=== PATIENT | male | born 1965 | race Caucasian/White ===

== ENCOUNTER → 2022-10-26 14:51 | Outpatient (BNVA) | payer OTHER, SELFPAY | PROVIDERS: PCP Internal Medicine; Visit Provider Psychiatry & Neurology Psychiatry | DX: F33.41 Major depressive disorder, recurrent, in partial remission (principal) ==

== ENCOUNTER → 2022-12-04 10:44 | Outpatient (BNVA) | payer OTHER, SELFPAY | PROVIDERS: PCP Internal Medicine; Visit Provider Psychiatry & Neurology Psychiatry | DX: Z13.89 Encounter for screening for other disorder (principal) ==

== ENCOUNTER 2023-05-21 12:14 | Outpatient (AMB) | payer OTHER, SELFPAY ==
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
== END 2023-05-21 12:44 | disposition home or self-care (01) ==
LOC: HO.HOP 12:14
PROVIDERS: PCP Internal Medicine; Visit Provider Psychiatry & Neurology Psychiatry
DX: E11.9 Type 2 diabetes mellitus without complications (principal); F41.1 Generalized anxiety disorder
CPT/HCPCS: 90833; 99213

== ENCOUNTER → 2023-05-21 12:14 | Outpatient (BNVA) | payer OTHER, SELFPAY | PROVIDERS: PCP Internal Medicine; Visit Provider Psychiatry & Neurology Psychiatry ==

== ENCOUNTER 2023-09-20 11:56 | Outpatient (AMB) | payer OTHER, SELFPAY ==
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
== END 2023-09-20 16:51 | disposition home or self-care (01) ==
LOC: HO.HOP 11:57
PROVIDERS: PCP Internal Medicine; Visit Provider Psychiatry & Neurology Psychiatry
DX: F41.1 Generalized anxiety disorder (principal); F33.41 Major depressive disorder, recurrent, in partial remission
CPT/HCPCS: 90833; 99213

== ENCOUNTER → 2023-09-20 11:56 | Outpatient (BNVA) | payer OTHER, SELFPAY | PROVIDERS: PCP Internal Medicine; Visit Provider Psychiatry & Neurology Psychiatry ==

== ENCOUNTER 2023-12-27 11:17 | Outpatient (AMB) | payer OTHER, SELFPAY ==
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
== END 2023-12-27 12:26 | disposition home or self-care (01) ==
LOC: HO.HOP 11:17
PROVIDERS: PCP Internal Medicine; Visit Provider Psychiatry & Neurology Psychiatry
DX: F33.9 Major depressive disorder, recurrent, unspecified (principal); F41.1 Generalized anxiety disorder
CPT/HCPCS: 90833; 99213

== ENCOUNTER → 2023-12-27 11:17 | Outpatient (BNVA) | payer OTHER, SELFPAY | PROVIDERS: PCP Internal Medicine; Visit Provider Psychiatry & Neurology Psychiatry ==

== ENCOUNTER 2024-01-24 11:21 | Outpatient (AMB) | payer OTHER, SELFPAY ==
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
== END 2024-01-24 13:57 | disposition home or self-care (01) ==
LOC: HO.HOP 11:21
PROVIDERS: PCP Internal Medicine; Visit Provider Psychiatry & Neurology Psychiatry
DX: F33.9 Major depressive disorder, recurrent, unspecified (principal); F41.1 Generalized anxiety disorder
CPT/HCPCS: 90833; 99213

== ENCOUNTER → 2024-01-24 11:21 | Outpatient (BNVA) | payer OTHER, SELFPAY | PROVIDERS: PCP Internal Medicine; Visit Provider Psychiatry & Neurology Psychiatry ==

== ENCOUNTER 2024-04-13 11:39 | Outpatient (AMB) | payer OTHER, SELFPAY ==
--- OUTSIDE RECORDS SUMMARY | 2024-04-13 11:41 | XMS_ITS | Continuity of Care Document ---
Author Organization [facility] Address [address] [place] [id number]- Care Team Providers Care Grain Elevator Worker Name Role Phone Samira FIGUEROA, Terrence Stein Primary Care Physician Encounter [facility] Date(s): 08/28/20 - 09/27/20 [facility] [address] [place] [id number] Allergies, Adverse Reactions, Alerts Substance Reaction Severity Status morphine Active Immunizations Given and Recorded Vaccine Date Status Refusal Reason Zoster Vaccine Live 09/10/20 Recorded Influenza Virus Vaccine (oldterm) 07/18/20 Recorde d Influenza Virus Vaccine (oldterm) 09/18/16 Recorde d Influenza Virus Vaccine (oldterm) 11/05/14 Recorde d Influenza Virus Vaccine (oldterm) 09/13/13 Recorde d zoster vaccine, inactivated 06/27/20 Recorded tetanus/diphtheria/pertussis, acel(Tdap) 01/27/19 Given pneumococcal 23-valent vaccine 11/05/14 Recorded tetanus-diphtheria toxoids (Td) 06/20/08 Recorded Medications Metamucil Unflavored Smooth Texture 3.4 g/5.4 g oral powder for reconstitution = 1.7 Gm, By Mouth, 2 times a day, # 450 Gm, 1 Refills, Maintenance, 08/29/20 14:13:00 EST, REC Powder, [id number], Partial fill upon patient request, 170.18, cm, 08/29/20 13:44:00 EST, Height Start Date: 08/29/20 Status: Ordered Problem List Condition Effective Dates Status Health Status Inform ant Carpal tunnel syndrome(Confirmed) Active Deviated septum(Confirmed) Active Uncontrolled diabetes mellitus(Confirmed) Active Skin lesion of right leg(Confirmed) Active Dyslipidemia(Confirmed) Active Hematoma(Confirmed) Active Calculus of kidney, on allop urinol prophylaxis(Confirmed) Active Microalbuminuria due to type 2 diabetes mellitus(Confirmed) Active Background diabetic retinopathy(Confirmed) Active Obesity(Confirmed) Active DEVAUGHN - Obstructive sleep apnea(Confirmed) Active Plantar fasciitis(Confirmed) Active PTSD (post-traumatic stress disorder)(Confirmed) Active Sleep apnea(Confirmed) Active Type II diabetes mellitus wi th renal manifestations not at goal(Confirmed) Active Umbilical hernia(Confirmed) Active Social History Social History Type Response Smoking Status Never (less than 100 in lifetime) entered on: 01/27/19 Sex
--- OUTSIDE RECORDS SUMMARY | 2024-04-13 11:41 | XMS_ITS | Continuity of Care Document ---
Author Organization [facility] Address [address] [place] [id number]- Care Team Providers Care Pearl Technician Name Role Phone Samira FIGUEROA, Terrence Stein Primary Care Physician [place] [facility] [place](s): 01/10/21 - 02/09/21 [facility] [address] [place] [id number] Attending Physician: Carlos Harris Admitting Physician: Carlos Harris Referring Physician: AdmCarlos goel Allergies, Adverse Reactions, Alerts Substance Reaction Severity Status morphine Active Immunizations Given and Recorded Vaccine Date Status Refusal Reason SARS-CoV-2 (COVID-19) mRNA BNT-162b2 vac 01/21/21 Recorded SARS-CoV-2 (COVID-19) mRNA BNT-162b2 vac 12/31/20 Recorded SARS-CoV-2 (COVID-19) mRNA BNT-162b2 vac 12/31/20 Recorded Zoster Vaccine Live 09/10/20 Recorded Influenza Virus [...] Maintenance, 08/29/20 14:13:00 EST, REC Powder, [id number], Partial fill upon patient request, 170.18, cm, [...]
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
== END 2024-04-13 13:05 | disposition home or self-care (01) ==
LOC: HO.HOP 11:39
PROVIDERS: PCP Internal Medicine; Visit Provider Psychiatry & Neurology Psychiatry
DX: F41.1 Generalized anxiety disorder (principal); F33.41 Major depressive disorder, recurrent, in partial remission
CPT/HCPCS: 90833; 99213

== ENCOUNTER → 2024-04-13 11:39 | Outpatient (BNVA) | payer OTHER, SELFPAY | PROVIDERS: PCP Internal Medicine; Visit Provider Psychiatry & Neurology Psychiatry ==

== ENCOUNTER 2024-07-06 10:08 | Outpatient (AMB) | payer OTHER, SELFPAY ==
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
== END 2024-07-06 11:05 | disposition home or self-care (01) ==
LOC: HO.HOP 10:08
PROVIDERS: PCP Internal Medicine; Visit Provider Psychiatry & Neurology Psychiatry
DX: F41.1 Generalized anxiety disorder (principal); F33.41 Major depressive disorder, recurrent, in partial remission
CPT/HCPCS: 90833; 99213

== ENCOUNTER → 2024-07-06 10:08 | Outpatient (BNVA) | payer OTHER, SELFPAY | PROVIDERS: PCP Internal Medicine; Visit Provider Psychiatry & Neurology Psychiatry ==

== ENCOUNTER 2024-09-25 10:54 | Outpatient (AMB) | payer OTHER, SELFPAY ==
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
[2024-09-25 11:40] VITALS: BP 154/72; PULSE 117
== END 2024-09-25 10:56 | disposition home or self-care (01) ==
LOC: HO.HOP 10:54
PROVIDERS: PCP Internal Medicine; Visit Provider Psychiatry & Neurology Psychiatry
DX: F33.41 Major depressive disorder, recurrent, in partial remission (principal); F41.1 Generalized anxiety disorder; F90.9 Attention-deficit hyperactivity disorder, unspecified type
CPT/HCPCS: 90833; 99213

== ENCOUNTER 2024-10-25 10:16 | Outpatient (AMB) | payer OTHER, SELFPAY ==
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
== END 2024-10-25 11:14 | disposition home or self-care (01) ==
LOC: HO.HOP 10:16
PROVIDERS: PCP Internal Medicine; Visit Provider Psychiatry & Neurology Psychiatry
DX: F33.41 Major depressive disorder, recurrent, in partial remission (principal); F41.1 Generalized anxiety disorder; F90.9 Attention-deficit hyperactivity disorder, unspecified type
CPT/HCPCS: 90833; 99213

== ENCOUNTER 2024-10-25 10:16 | Outpatient (REF) | payer OTHER, SELFPAY ==
[2024-10-25 11:39] LABS: MANUAL DIFF FLAG NO
--- NOTE | 2024-10-25 11:45 | ECG_ITS ---
Test Reason : ADHD Blood Pressure : */* mmHG Vent. Rate : 68 BPM Atrial Rate : 68 BPM P-R Int : 170 ms QRS Dur : 150 ms QT Int : 424 ms P-R-T Axes : 32 -57 -2 degrees QTcB Int : 450 ms Normal sinus rhythm Right bundle branch block Left anterior fascicular block Bifascicular block Abnormal ECG No previous ECGs available Referred By: Brandon Patel Electronically Signed By: ASHLEY ENCARNACION
[2024-10-25 12:41] LABS: Basophils Percent Auto 0.4 % (0-2); Eosinophils Absolute Auto 0.3 X10*3/uL (0.0-0.4); Eosinophils Percent Auto 3.6 % (0-4); Hematocrit 48.4 % (42.0-52.0); Hemoglobin 16.9 g/dl (14.0-18.0); Imm Gran Abs Auto 0.03 X10*3/uL (0.00-0.03); Imm Gran Pct Auto 0.4 % (0.0-0.4); Lymphocytes Absolute Auto 1.6 X10*3/uL (1.2-4.9); Lymphocytes Percent Auto 22.7 % (20-40); Mean Corpuscular HGB Conc 34.9 g/dl (31.0-36.0); Mean Corpuscular Hemoglobin 31.1 pg (27.0-33.0); Mean Corpuscular Volume 89.1 fL (80.0-98.0); Mean Platelet Volume 10.1 fL (9.4-12.4); Monocytes Absolute Auto 0.7 X10*3/uL (0.1-1.2); Monocytes Percent Auto 9.4 % (2-11); Neutrophils Absolute Auto 4.4 x10*3/uL (2.0-8.3); Neutrophils Percent Auto 63.5 % (45-73); Platelet Count 282 X10*3/uL (160-400); Red Blood Count 5.43 X10*6/uL (4.60-5.80); Red Cell Distribution Width 12.8 % (11.0-16.0)
[2024-10-25 13:13] LABS: Alanine Aminotransferase 42 U/L (0-40); Albumin Level 4.8 g/dL (3.5-5.0); Alkaline Phosphatase 83 U/L (39-117); Anion Gap 16 (12-20); Aspartate Amino Transferase 17 U/L (5-37); Bilirubin Total 0.4 mg/dL (0.0-1.0); Blood Urea Nitrogen 14 mg/dL (9-16); Calcium 9.9 mg/dL (8.4-10.2); Carbon Dioxide 30 mmol/L (22-29); Chloride 102 mmol/L (96-108); Estimated Glomerular Filt Rate > 60; Glucose Random 239 mg/dL (60-115); Potassium 5.5 mmol/L (3.3-5.1); Sodium 142 mmol/L (135-145); Total Protein 7.8 g/dL (6.5-8.0)
[2024-10-25 13:29] LABS: TSH reflex Free T4 1.78 uIU/mL (0.32-4.0)
[2024-10-25 13:42] LABS: Folate 15.3 ng/mL (> or = 4.0); Vitamin B12 936 pg/mL (200-900)
== END 2024-10-25 10:17 | disposition home or self-care (01) ==
LOC: HO.LAB 10:16
PROVIDERS: PCP Internal Medicine; Visit Provider Psychiatry & Neurology Psychiatry
DX: F33.41 Major depressive disorder, recurrent, in partial remission (principal); F41.1 Generalized anxiety disorder; F90.9 Attention-deficit hyperactivity disorder, unspecified type; R53.83 Other fatigue; I10 Essential (primary) hypertension
CPT/HCPCS: 36415; 80053; 82607; 82746; 84443; 85025; 93005

== ENCOUNTER → 2024-10-25 11:45 | Outpatient (BNV) | payer OTHER, SELFPAY | PROVIDERS: PCP Internal Medicine; Visit Provider Internal Medicine | DX: I45.2 Bifascicular block (principal); R94.31 Abnormal electrocardiogram [ECG] [EKG] | CPT/HCPCS: 93010 ==

== ENCOUNTER 2024-12-13 10:24 | Outpatient (AMB) | payer OTHER, SELFPAY ==
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
--- OUTSIDE RECORDS SUMMARY | 2024-12-13 12:43 | XMS_ITS | Data Portability ---
Author Organization [place] [facility], [facility] Address [address] [place] [address] Care Team Providers Care Geospatial Technician Name Role Phone GIOVANNA CARVER Primary Care Provider Assessment Encounter Date Assessment Date Assessment LastModified by Organization Details LastModified Time 04/03/2024 04/03/2024 Assessment: Righ t elbow lateral epicondylitis, initial diagnosis Plan: We discussed the pathophysiology of this problem and treatment options. He has elected to try a cortisone injection. He is also provided with a forearm strap. The patient is ambulatory, but has weakness and/or instability of their extremity which requires stabilization from this semi-rigid/rigid orthosis to improve their function. Verbal and written instructions for their use and application of this item were given. patient was instructed that should the brace result in increased pain, decreased sensation, increased swelling or an overall worsening of their medical condition, to please contact our office immediately. meena Not available 04/03/2024 08:55:20 Plan of Treatment Reminders Order Date Submit Date Provider Last Modified By Organization Details Last Modified Time Details Appointments None record ed. Lab None record ed. Referral None record ed. Procedures None record ed. Surgeries None record ed. Imaging XR, elbow, 3 or more view - 3 views right elbow pt in room 115 2023 024 meena [facility], [address], [facility] [address], [place], [address], 08:56:41 Medication Orders None record ed. Patient TargetsNo targets recorded. Patient InstructionsNo instructions recorded. Reason for Referral None Reported. Results Created Date Observation Date Name Description Value Unit Range Abnormal Flag Note LastModifiedBy Organization Detail LastModifiedTime 04/03/20 24 04/03/2024 XR, elbow , 3 or more view [email or web address] ?Encry pted=s hAaTro YD8dLq bEUv6g %2BXZw aYqtaq 0bqfl% 2Fg9IQ a4ajBk vP9nXo QUaueC m3YtLR FvZlgJ JJ8mAn HZtai3 2s5348 AC0Kub 3WNWaX eUC8mr 84%3D INTERFACE [facility] [address], [place], [address], 04/03/2024 08:41:18 04/03/20 24 04/03/2024 XR, elbow , 3 or more view [email or web address] ?Encry pted=s hAaTro YD8dLq bEUv6g %2BXZw aYqtaq 0bqfl% 2Fg9IQ a4ajBk vP9nXo QUaueC m3YtLR FvZlgJ JJ8mAn HZtai 8t3612 AC0Kub 3WNWaX eUC8mr 84%3D INTERFACE [facility] [address], [place], [address], 04/03/2024 08:41:20 Result Notes None recorded. Problems Name Problem SNOMED Code Status Onset Date Resolution Date Notes Provider Name and Address Organization Details Recorded Time No complaint s [id number] Active Status: 'I'; Not Available [facility] 4 09:14:58 Carpal tunnel syndrome of right wrist [id number] 108 Active 2016 Problem Code: G56.01; Problem Code Type: ICD-10; Status: 'A'; Not Available [facility] 4 11:42:05 Problem Notes None recorded. Procedures Surgical History Date Name Laterality Status Provider Name and Address Organization Details Recorded Time 04/03/20 24 Lateral Epicondylitis Kenalog 1cc Injection, L/R completed Jade Nevarez MD [address], [place], [address], [place] - [facility] 04/03/2024 08:54:45 Imaging Results Imaging Date Name Status LastModified by Organiz ation Details LastModified Time 04/03/2024 XR, elbow, 3 or more view completed INTERFACE [facility] [address], [place], [address], 04/03/2024 08:41:18 04/03/2024 XR, elbow, 3 or more view completed INTERFACE [facility] [address], [place], [address], 04/03/2024 08:41:20 Procedure Notes None recorded. Medical Equipment None Reported. Allergies No known drug allergies Medications Name Sig Start Date Stop Date Status Note LastModified by Organization Details LastModified Time venlafaxine ER 37.5 mg capsule,exte nded release 24 hr TAKE 3 CAPSULES BY MOUTH EVERY NIGHT AT BEDTIME active Not Available Not Available No t Available venlafaxine ER 75 mg capsule,exte nded release 24 hr TAKE 1 CAPSULE BY MOUTH DAILY active Not Available Not Available Not Available glipizide 10 mg tablet TAKE 1 TABLET BY MOUTH TWICE A DAY active Not Available Not Available No t Available simvastatin 10 mg tablet TAKE 1 TABLET BY MOUTH EVERYDAY AT BEDTIME active Not Available Not Available No t Available venlafaxine ER 150 mg capsule,exte nded release 24 hr TAKE 1 CAPSULE BY MOUTH DAILY FOR 90 DAYS active Not Available Not Available Not Available lorazepam 0.5 mg tablet TAKE 1 TABLET BY MOUTH TWICE A DAY NEEDED FOR ANXIETY active Not Available Not Available No t Available propranolol ER 80 mg capsule,24 hr,extended release TAKE 1 CAPSULE BY MOUTH EVERY DAY active Not Available Not Available No t Available allopurinol 300 mg tablet TAKE 1 TABLET BY MOUTH EVERY DAY active Not Available Not Available No t Available lisinopril 5 mg tablet TAKE 1 TABLET BY MOUTH EVERY DAY active Not Available Not Available No t Available mirtazapine 15 mg tablet TAKE 1/2 TO 1 TABLET ORALLY BEDTIME FOR 30 DAYS active Not Available Not Available No t Available Victoza 2-Erick 0.6 mg/0.1 mL (18 mg/3 mL) subcutaneous pen injector ADMINISTER 1.8 MG UNDER THE SKIN DAILY active Not Available Not Available N ot Available Xigduo XR 2.5 mg-1,000 mg tablet,exten ded release TAKE 2 TABLETS BY MOUTH EVERY MORNING WITH FOOD active Not Available Not Available No t Available Ozempic 1 mg/dose (4 mg/3 mL) subcutaneous pen injector INJECT 1MG UNDER THE SKIN ONE DAY A WEEK active Not Available Not Available N ot Available Ozempic 2 mg/dose (8 mg/3 mL) subcutaneous pen injector active Not Available Not Available Not Available Vitals Date Recorded Body height Body mass index (BMI) Body weight Provider Name and Address Organization Details Last Updated DateTime 04/03/2024 170.18 cm 26.9 kg/m2 11912.89 g SLADE COTA [place] - [facility] 04/03/2024 08:29:58 Social History None recorded. Functional Status None recorded. Mental Status None recorded. Family History Nothing Reported. Medical History No medical history recorded. Past Encounters Encounter ID Performer Location Encounter Start Date Encounter Closed Date Diagnosis/Indication Diagnosis SNOMED-CT Code Diagnosis ICD10 Code Diagnosis Note [id number] MD [facility] [address] [place] [address] 04/03/2024 08:17:34 05/04/2024 07:49:15 Lateral epicondylitis [id number] M77.11 Health Concerns Section Related Observation LastModified by Organization Detai ls LastModified Time None Recorded Concern Status LastModified by Organization Details LastModified Time None Recorded Advance Directives Directive None Recorded Payers Encounter Date Sequence Insurance Name Policy Number Policy Keller Covered Member ID Keller Member ID Guarantor Name 04/03/[address] [place] [address] [id number] Saul Gomez [id number] Saul Gomez Notes Date Note Type Note Provider Name and Address Organization Details Recorded Time 04/03/2024 text/html 59 yo right hand dom male with R elbow pain, has had on/off pain for some time (over a year) with no definitive injury. pain with activity, no pain at rest, radiates down forearm. Rx to this point: topical, NSAIDS, no brace, no PT. Jade Nevarez MD [address], [place], [address], [place] [facility] 04/03/2024 08:56:37
== END 2024-12-13 11:12 | disposition home or self-care (01) ==
LOC: HO.HOP 10:24
PROVIDERS: PCP Internal Medicine; Visit Provider Psychiatry & Neurology Psychiatry
DX: F33.41 Major depressive disorder, recurrent, in partial remission (principal); F41.1 Generalized anxiety disorder; F90.9 Attention-deficit hyperactivity disorder, unspecified type
CPT/HCPCS: 99214

== ENCOUNTER → 2024-12-13 10:24 | Outpatient (BNVA) | payer OTHER, SELFPAY | PROVIDERS: PCP Internal Medicine; Visit Provider Psychiatry & Neurology Psychiatry ==

== ENCOUNTER 2025-03-14 10:25 | Outpatient (AMB) | payer OTHER, SELFPAY ==
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
--- OUTSIDE RECORDS SUMMARY | 2025-03-14 11:23 | XMS_ITS | Encounter Summary ---
Author Organization [facility] Address [address] [place] [address] Care Team Providers Care Tester [employer]icon[employer] Packages Name Role Phone Piotr Cortes MD Primary Care Provider Unavail able Bernardo Newberry MD Primary Care Provider [phone] [facility] Primary Care Provider Unavailabl e Reason for Visit * Reason Comments E-prescribe Rx Request Encounter Details Date Type Department Care Team Description 08/18/2013 Refill Adult Medicine B - [place] [address] [place] [address] Piotr Cortes MD E-prescribe Rx Request Social History Tobacco Use Types Packs/Day Years Used Date Smoking Tobacco: Never Alcohol Use Standard Drinks/Week Comments Not Asked 0 (1 standard drink = 0.6 oz pur e alcohol) Sex Assigned at Date Recorded Not on file documented as of this encounter Miscellaneous Notes * Telephone Encounter - Piotr Cortes MD - 08/21/2013 9:13 PM EST Comfort please look at 08/18/13 documentation-I do not know how that phrase got in there or how to getit out. It is an old 'smart phrase' * Telephone Encounter - Cecilia West M.A. - 08/20/2013 8:39 AM EST Please clarify your documentation below * Telephone Encounter - Piotr Cortes MD - 08/18/2013 5:13 PM EDT Entered in error * Telephone Encounter - Cecilia West M.A. - 08/18/2013 3:30 PM EDT Tamar 7.22.13 Component Value Date NA 137 12/19/2012 K 4.6 12/19/2012 CO2 30.0 12/19/2012 CL 98 12/19/2012 BUN 13 12/19/2012 CREAT 0.8 12/19/2012 GLU 305 12/19/2012 CA 9.7 12/19/2012 GFR > 60 12/19/2012 Component Value Date CHOL 163 12/19/2012 LDL 83 12/19/2012 HDL 44 12/19/2012 TRIG 181 12/19/2012 SGOT 15 12/19/2012 SGPT 35 12/19/2012 * Telephone Encounter - Susan Renee - 08/18/2013 3:08 PM EDT Patient would like script to be: E-PRESCRIBED/FAXED TO PHARMACY WHEN WAS THE PATIENT'S LAST APPOINTMENT IN ADULT MEDICINE? 05.08.13 WHEN WAS THE LAST TIME THE PATIENT SAW THEIR PCP? 3.13 Does patient have an upcoming appointment? no (THE MEDICATION REQUESTED IS ON THE MED LIST ABOVE) All of the medications requested were on the CURRENT MEDS list Did you check the Pharmacy information above?: YES Patient wants: 90 -day supply Is this a mail order prescription request ? NO Patients current insurance carrier is: Payor: [employer] Plan: POS $20 [id number] Product Type: [id number] documented in this encounter Plan of Treatment Not on file documented as of this encounter Visit Diagnoses Not on filedocumented in this encounter Care Teams Tester [employer]iconductor Packages Relationship Specialty Start Date End Date Piotr Cortes MD PCP - General 08/28/02 09/21/17 Bernardo Newberry MD [address] [place] [address] PCP - General Internal Medicine 09/22/17 06/01/[address] [address] PCP - General Internal Medicine 06/02/21 documented as of this encounter
== END 2025-03-14 11:26 | disposition home or self-care (01) ==
LOC: HO.HOP 10:25
PROVIDERS: PCP Internal Medicine; Visit Provider Psychiatry & Neurology Psychiatry
DX: F41.1 Generalized anxiety disorder (principal); F90.9 Attention-deficit hyperactivity disorder, unspecified type
CPT/HCPCS: 90833; 99213

== ENCOUNTER 2025-06-13 11:35 | Outpatient (AMB) | payer OTHER, SELFPAY ==
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
--- OUTSIDE RECORDS SUMMARY | 2025-06-13 12:34 | XMS_ITS | Encounter Summary ---
Author Organization [facility] Address [address] [place] [address] Care Team Providers Care Hander In Name Role Phone Piotr Cortes MD Primary Care Provider Unavail able Bernardo Newberry MD Primary Care Provider [phone] [facility] Primary Care Provider Unavailabl e Encounter Details Date Type Department Care Team Description 02/25/2005 Orders Only Adult Medicine - [place] [address] [place] [address] Piotr Cortes MD ROUTINE GENERAL MEDICAL EXAMINATION AT A HEALTH CARE FACILITY (Primary Dx) Social History Tobacco Use Types Packs/Day Years Used Date Smoking Tobacco: Never Assessed Sex Assigned at Date Recorded Not on file documented as of this encounter Plan of Treatment Scheduled Orders Name Type Priority Associated Diagnoses Orde r Schedule VENIPUNCTURE Lab Routine Routine General Medical Examination At A Health Care Facility Ordered: 02/25/2005 documented as of this encounter Procedures Procedure Name Priority Date/Time Associated Diagnosis Comments PROSTATE SPEC. AG, SCREEN Routine 02/25/2005 3:15 PM EDT Routine General Medical Examination At A Health Care Facility TSH Routine 02/25/2005 3:15 PM EDT Routine General Medical Examination At A Health Care Facility CHG URNLS DIP STICK/TABLET REAGENT AUTO MICROSCOPY Routine 02/25/2005 3:15 PM EDT Routine General Medical Examination At A Health Care Facility CHG BLOOD COUNT HEMATOCRIT Routine 02/25/2005 3:15 PM EDT Routine General Medical Examination At A Health Care Facility CHG CHOLESTEROL SERUM/WHOLE BLOOD TOTAL Routine 02/25/2005 3:15 PM EDT Routine General Medical Examination At A Health Care Facility CHG COMPREHENSIVE METABOLIC PANEL Routine 02/25/2005 3:15 PM EDT Routine General Medical Examination At A [facility] Care Facility documented in this encounter Results * URINALYSIS, COMPLETE (02/25/2005 3:15 PM EDT) GLUCOSE, URINE (UA) NEGATIVE NEGATIVE mg/dL [facility] BILIRUBIN URINE NEGATIVE NEGATIVE [facility] KETONE, URINE NEGATIVE NEGATIVE mg/dL [facility] SPECIFIC GRAVITY, URINE 1.023 1.003 - 1.030 [facility] BLOOD, URINE NEGATIVE NEGATIVE [facility] PH, URINE 7.5 5.0 - 8.0 [facility] PROTEIN, URINE NEGATIVE <= TRACE mg/dl [facility] UROBILINOGEN, URINE 0.2 0.2 - 1.0 E.U./dL [facility] NITRITE,URINE NEGATIVE NEGATIVE [facility] LEUKOCYTE ESTERASE, URINE NEGATIVE NEGATIVE [facility] RBC-Urine 0 0 - 4 /HPF [facility] WBC-Urine 1 0 - 4 /hpf [facility] BACTERIA, URINE NEGATIVE [facility] 02/25/2005 3:15 PM EDT 02/25/2005 3:17 PM EDT Piotr Cortes MD LAB Performing Organization Address [facility]/ZIP Co de Phone Number [facility] * TSH (02/25/2005 3:15 PM EDT) TSH 1.90 0.40 - 4.00 uIU/ml [facility] 02/25/2005 3:15 PM EDT 02/25/2005 3:17 PM EDT Piotr Cortes MD LAB [facility] * PROSTATE SPEC. AG, SCREEN (02/25/2005 3:15 PM EDT) PROSTATIC SPECIFIC ANTIGEN SCR 0.7 0.0 - 4.0 ng/mL [facility] 02/25/2005 3:15 PM EDT 02/25/2005 3:17 PM EDT Piotr Cortes MD LAB [facility] * CHOLESTEROL (02/25/2005 3:15 PM EDT) Cholesterol 176 0 - 200 mg/dL [facility] 02/25/2005 3:15 PM EDT 02/25/2005 3:17 PM EDT Piotr Cortes MD LAB Performing Organization Address [facility]/ZIP Co de Phone Number [facility] * HEMATOCRIT BLOOD COUNT (02/25/2005 3:15 PM EDT) Hematocrit 46.7 40 - 51 % [facility] 02/25/2005 3:15 PM EDT 02/25/2005 3:17 PM EDT Piotr Cortes MD LAB Performing Organization Address [facility]/ZIP Co de Phone Number [facility] * (ABNORMAL) COMPREHENSIVE METABOLIC PANEL (02/25/2005 3:15 PM EDT) GLUCOSE 97 70 - 110 mg/dL [facility] Blood Urea Nitrogen 12 5 - 25 mg/dL [facility] creatinine 0.6(L) 0.7 - 1.5 mg/dL [facility] BUN/CREATININE RATIO 20.0 6.0 - 20.0 G/dL [facility] Sodium 141 133 - 145 mEq/L [facility] Potassium 4.7 3.5 - 5.2 mEq/L [facility] Chloride 107 96 - 108 mEq/L [facility] CARBON DIOXIDE (CO2) 27.2 21.0 - 32.0 mEq/L [facility] CALCIUM 9.0 8.5 - 10.5 mg/dL [facility] TOTAL PROTEIN (TP) 7.4 6.0 - 8.0 G/dL [facility] Albumin 4.8 3.2 - 5.6 G/dL [facility] GLOBULIN 2.6 1.9 - 4.4 G/dL [facility] ALBUMIN/GLOBULI N RATIO 1.8 1.1 - 2.3 [facility] BILIRUBIN TOTAL 0.4 0.0 - 1.4 mg/dL [facility] AST (SGOT) 22 10 - 42 U/L [facility] ALT (SGPT) 66(H) 10 - 60 U/L [facility] Alk Phos 79 42 - 121 U/L [facility] 02/25/2005 3:15 PM EDT 02/25/2005 3:17 PM EDT Piotr Cortes MD LAB [facility] documented in this encounter Visit Diagnoses Diagnosis Routine general medical examination at a health care facility- Primary documented in this encounter Care Teams Hander In Relationship Specialty Start Date End Date Piotr Cortes MD PCP - General 08/28/02 09/21/17 Bernardo Newberry MD [address] [place] [address] PCP - General Internal Medicine 09/22/17 06/01/21 [facility], [address] [address] PCP - General Internal Medicine 06/02/21 documented as of this encounter
--- OUTSIDE RECORDS SUMMARY | 2025-06-13 12:34 | XMS_ITS | Encounter Summary ---
[facility] Organization [facility] Address [address] [place] [address] Care Team Providers Care Hydraulic Plumber Name Role Phone Community, Pcp Primary Care Provider Unavailabl e Encounter Details Date Type Department Care Team Description 11/17/2021 [employer] Report Medical Records [address] [place] [address] Jade Nevarez MD Social History Tobacco Use Types Packs/Day Years Used Date Smoking Tobacco: Never Smokeless Tobacco: Never Alcohol Use Standard Drinks/Week Comments Not Asked 0 (1 standard drink = 0.6 oz pur e alcohol) Sex Assigned at Date Recorded Not on file documented as of this encounter Plan of Treatment Not on file documented as of this encounter Visit Diagnoses Not on filedocumented in this encounter Care Teams Hydraulic Plumber Relationship Specialty Start Date End Date Community, Pcp PCP - General Internal Medicine 06/02/21 documented as of this encounter
--- OUTSIDE RECORDS SUMMARY | 2025-06-13 12:34 | XMS_ITS | Encounter Summary ---
Author Organization [facility] Address [address] [place] [address] Care Team Providers Care Energy Efficiency Finance Manager Name Role Phone Bernardo Newberry MD Primary Care Provider [phone] [phone] [facility], Pcp Primary Care Provider Unavailabl e Reason for Visit * Reason Onset Date Comments Faxed Refill 05/09/2018 Encounter Details Date Type Department Care Team Description 05/09/2018 Refill Adult Medicine [address] [address] Bernardo Newberry MD [address] [place] [address] Faxed Refill Social History Tobacco Use Types Packs/Day Years Used Date Smoking Tobacco: Never Smokeless Tobacco: Never Alcohol Use Standard Drinks/Week Comments Not Asked 0 (1 standard drink = 0.6 oz pur e alcohol) Sex Assigned at Date Recorded Not on file documented as of this encounter Miscellaneous Notes * Telephone Encounter - Bri George - 05/09/2018 11:54 AM EDT Last office visit: 12.24.17 Lab Results Component Value Date NA 138 07/19/2017 K 4.8 07/19/2017 CO2 24.5 07/19/2017 CL 97 07/19/2017 BUN 16 07/19/2017 CREAT 0.6 07/19/2017 GLU 213 07/19/2017 CA 9.9 07/19/2017 GFR > 60 07/19/2017 * Telephone Encounter - Marko Rodriguez - 05/09/2018 8:37 AM EDT Patient would like script to be: E-PRESCRIBED/FAXED TO PHARMACY WHEN WAS THE PATIENT'S LAST APPOINTMENT IN ADULT MEDICINE? 12-24-17 WHEN WAS THE LAST TIME THE PATIENT SAW THEIR PCP? Same as above Does patient have an upcoming appointment? No-unable to reach left [facility] to call for appointment due to refill request. Appt due (THE MEDICATION REQUESTED IS ON THE MED LIST ABOVE) All of the medications requested were on the CURRENT MEDS list Did you check the Pharmacy information above?: YES Patient wants: 90 -day supply Is this a mail order prescription request ? NO If the refill is from a FAXED refill request what is the RX # listed on the fax? N/A Patients current insurance carrier is: Payor: [employer] / Plan: POS [id number] / Product Type: POS Lip-vao-Ovldttq documented in this encounter Plan of Treatment Not on file documented as of this encounter Visit Diagnoses Not on filedocumented in this encounter Care Teams Energy Efficiency Finance Manager Relationship Specialty Start Date End Date Bernardo Newberry MD [address] [address] PCP - General Internal Medicine 09/22/17 06/01/21 [facility], [address] [address] PCP - General Internal Medicine 06/02/21 documented as of this encounter
--- OUTSIDE RECORDS SUMMARY | 2025-06-13 12:34 | XMS_ITS | Encounter Summary ---
[facility] Organization [facility] Address [address] [place] [address] Care Team Providers Care Telephone Cleaner Name Role Phone Piotr Cortes MD Primary Care Provider Unavail able Bernardo Newberry MD Primary Care Provider [phone] [phone] [facility], [facility] Primary Care Provider Unavailabl e Reason for Visit * Reason Comments E-prescribe Rx Request Encounter Details Date Type Department Care Team Description 08/18/2013 Refill Adult Medicine B - [place] [address] [place] [address] Piotr Cortes MD E-prescribe Rx Request Social [...] carrier is: Payor: [employer] Plan: POS $20 [id number] Product Type: [id number] documented in this encounter Plan of Treatment Not on file documented as of this encounter Visit Diagnoses Not on filedocumented in this encounter Care Teams Telephone Cleaner Relationship Specialty Start Date End Date Piotr Cortes MD PCP - General 08/28/02 09/21/17 Bernardo Newberry MD [address] [place] [address] PCP - General Internal Medicine 09/22/17 06/01/[address] [address] PCP - General Internal Medicine 06/02/21 documented as of this encounter
--- OUTSIDE RECORDS SUMMARY | 2025-06-13 12:34 | XMS_ITS | Encounter Summary ---
Author Organization [facility] Address [address] [place] [address] Care Team Providers Care Director Cardiovascular Name Role Phone Piotr Cortes MD Primary Care Provider Unavail able Bernardo Newberry MD Primary Care Provider [phone] [phone] [facility] Primary Care Provider Unavailabl e Encounter Details Date Type Department Care Team Description 04/29/2012 Hospital Medical Records [address] [place] [address] Adan Porras MD [address] [place] [address] Social History Tobacco Use Types Packs/Day Years [...] on filedocumented in this encounter Care Teams Director Cardiovascular Relationship Specialty Start Date End Date Piotr Cortes MD PCP - General 08/28/02 09/21/17 Bernardo Newberry MD [address] [place] [address] [id number] PCP - General Internal Medicine 09/22/17 06/01/21 [facility], Pcp [address] [place] [address] PCP - General Internal Medicine 06/02/21 documented as of this encounter
--- OUTSIDE RECORDS SUMMARY | 2025-06-13 12:34 | XMS_ITS | Encounter Summary ---
Author Organization [employer] [facility] Address [address] [place] [address] Care Team Providers Care Pick Pack Worker Name Role Phone Piotr Cortes MD Primary Care Provider Unavail able Bernardo Newberry MD Primary Care Provider [phone] [phone] [facility], [facility] Primary Care Provider Unavailarbor health e Encounter Details Date Type Department Care Team Description 07/09/2006 Hospital Medical Records [address] [place] [address] Gavin Jarrell [address] [place] [address] Social History Tobacco Use Types Packs/Day Years [...] on filedocumented in this encounter Care Teams Pick Pack Worker Relationship Specialty Start Date End Date Piotr Cortes MD PCP - General 08/28/02 09/21/17 Bernardo Newberry MD [address] [place] [address] PCP - General Internal Medicine 09/22/17 06/01/21 [facility], Pcp [address] [place] [address] PCP - General Internal Medicine 06/02/21 documented as of this encounter
--- OUTSIDE RECORDS SUMMARY | 2025-06-13 12:34 | XMS_ITS | Encounter Summary ---
Author Organization [facility] [employer] [facility] Address [address] [place] [address] Care Team Providers Care Milling Planer Operator Name Role Phone Piotr Cortes MD Primary Care Provider Unavail able Bernardo Newberry MD Primary Care Provider [phone] [phone] [facility] Primary Care Provider Unavailabl e Encounter Details Date Type Department Care Team Description 03/17/2011 Eye Billiard Table Assembler Report Medical Records [address] [place] [address] Romain Tinoco [address] [place] [address] Social History Tobacco Use Types Packs/Day Years Used Date Smoking Tobacco: Never Alcohol Use Standard Drinks/Week Comments Not Asked 0 (1 standard drink = 0.6 oz pur e alcohol) Sex Assigned at Date Recorded Not on file documented as of this encounter Plan of Treatment Not on file documented as of this encounter Visit Diagnoses Not on filedocumented in this encounter Care Teams Milling Planer Operator Relationship Specialty Start Date End Date Piotr Cortes MD PCP - General 08/28/02 09/21/17 Bernardo Newberry MD [address] [place] [address] [id number] PCP - General Internal Medicine 09/22/17 06/01/21 [facility], Pcp [address] [place] [address] PCP - General Internal Medicine 06/02/21 documented as of this encounter
--- OUTSIDE RECORDS SUMMARY | 2025-06-13 12:34 | XMS_ITS | Encounter Summary ---
Author Organization [facility] Address [address] [place] [address] Care Team Providers Care Pad Tufter Name Role Phone Piotr Cortes MD Primary Care Provider Unavail able Bernardo Newberry MD Primary Care Provider [phone] [phone] [facility], Pcp Primary Care Provider Unavailabl e Encounter Details Date Type Department Care Team Description 08/07/2012 Walk In Clinic Visit Medical Records [address] [place] [address] Social History Tobacco Use Types Packs/Day Years Used Date Smoking Tobacco: Never Alcohol Use Standard Drinks/Week Comments Not Asked 0 (1 standard drink = 0.6 oz pur e alcohol) Sex Assigned at Date Recorded Not on file documented as of this encounter Plan of Treatment Not on file documented as of this encounter Visit Diagnoses Not on filedocumented in this encounter Care Teams Pad Tufter Relationship Specialty Start Date End Date Piotr Cortes MD PCP - General 08/28/02 09/21/17 Bernardo Newberry MD [address] [place] [address] [id number] PCP - General Internal Medicine 09/22/17 06/01/21 [facility], Pcp [address] [place] [address] PCP - General Internal Medicine 06/02/21 documented as of this encounter
== END 2025-06-13 12:24 | disposition home or self-care (01) ==
LOC: HO.HOP 11:35
PROVIDERS: PCP Internal Medicine; Visit Provider Psychiatry & Neurology Psychiatry
DX: F33.41 Major depressive disorder, recurrent, in partial remission (principal); F41.1 Generalized anxiety disorder; I10 Essential (primary) hypertension; E11.9 Type 2 diabetes mellitus without complications
CPT/HCPCS: 90833; 99213

== ENCOUNTER 2025-08-30 10:33 | Outpatient (AMB) | payer OTHER, SELFPAY ==
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
--- OUTSIDE RECORDS SUMMARY | 2025-08-30 12:55 | XMS_ITS | Data Portability ---
Author Organization [facility] Address [address] [place] [address] Care Team Providers Care Theatre Instructor Name Role Phone CARVERGIOVANNA Primary Care Provider Assessment Encounter Date Assessment Date Assessment LastModified by Organization Details LastModified Time 04/03/2024 04/03/2024 Assessment: Brenda t elbow lateral epicondylitis, initial diagnosis Plan: [...] 115 2023 024 [facility], [address], [facility] [address], [place], [address], 08:56:41 Medication Orders None record ed. Patient TargetsNo targets recorded. Patient InstructionsNo instructions recorded. Reason for Referral None Reported. Results Created Date Observation Date Name Description Value Unit Range Abnormal Flag Note LastModifiedBy Organization Detail LastModifiedTime 04/03/20 24 04/03/2024 XR, elbow , 3 or more view http:/ [email or web address] ?Encry pted=s hAaTro YD8dLq bEUv6g %2BXZw aYqtaq 0bqfl% 2Fg9IQ a4ajBk vP9nXo QUaueC m3YtLR FvZlgJ JJ8mAn HZtai3 0f9934 AC0Kub 3WNWaX eUC8mr 84%3D INTERFACE [facility] [address], [place], [address], 04/03/2024 08:41:18 04/03/20 24 04/03/2024 XR, elbow , 3 or more view http:/ [email or web address] ?Encry pted=s hAaTro YD8dLq bEUv6g %2BXZw aYqtaq 0bqfl% 2Fg9IQ a4ajBk vP9nXo QUaueC m3YtLR FvZlgJ JJ8mAn HZtai3 5y0351 AC0Kub 3WNWaX eUC8mr 84%3D INTERFACE [facility] [address], [place], [address], 04/03/2024 08:41:20 Result Notes Documentation Provider Name and Address Organization Details Recorded Time Xr, Elbow, 3 Or More View : [email or web address]? Encrypted=weSvNkeIG7pNdaB Uv6g%5DNEyrNgeyx4areo%2Fg 7PUe1atOarF5tUmLWuijLl9Ap PKPaOyrMIZ5nPwAZoxm64s442 0XY0Hyh4ZJAlLbAQ3jx64%3D Not Available [facility] 04/03/2024 08:4 1:19 Xr, Elbow, 3 Or More View : [email or web address]? Encrypted=vdCiUozVX2hVphE Uv6g%2YEXgtZtnao0crbn%2Fg 0FVx9wnUpiG7rCwAEfppTy3Oc OFOxWbmHXX9kUvTLavc82j502 6XE6Mja5JXLpHeKT5pb19%3D Not Available [facility] 04/03/2024 08:4 1:21 Problems Name Problem SNOMED Code Status Onset Date Resolution Date Notes Provider Name and Address Organization Details Recorded Time No complaint s [id number] Active Status: 'I'; Not Available [facility] 4 09:14:58 Carpal tunnel syndrome of right wrist [id number] 108 Active 2016 Problem Code: G56.01; Problem Code Type: ICD-10; Status: 'A'; Not Available [facility] 4 11:42:05 Problem Notes None recorded. Procedures Surgical History Date Name Laterality Status Provider Name and Address Organization Details Recorded Time 04/03/20 24 Lateral Epicondylitis Kenalog 1cc Injection, L/R completed Jade Nevarez MD [address] [place] [address] [address], [place], [address], [facility] 04/03/2024 08:54:45 Imaging Results None recorded. Procedure Notes None recorded. Medical Equipment None [...] Updated DateTime 04/03/2024 170.18 cm 26.9 kg/m2 17322.89 g SLADE C[place] - [place] 04/03/2024 08:29:58 Social History None recorded. Functional Status None recorded. Mental Status None recorded. Family History Nothing Reported. Medical History No medical history recorded. Past Encounters Encounter ID Performer Location Encounter Start Date Encounter Closed Date Diagnosis/Indication Diagnosis SNOMED-CT Code Diagnosis ICD10 Code Diagnosis IMO Codes Diagnosis Note [id number] MD Yumiko Stanley [address] [place] [address] 04/03/2024 08:17:34 05/04/2024 07:49:15 Lateral epicondylitis 409114860 M77.11 Health Concerns Section Related Observation LastModified by Organization Detai ls LastModified Time None Recorded Concern Status LastModified by Organization Details LastModified Time None Recorded Advance Directives Directive None Recorded Payers Insurance Date Sequence Insurance Name Policy Number Policy Keller Covered Member ID Keller Member ID Guarantor Name 05/05/[address] [place] [address] [id number] Saul Gomez [id number] Saul Gomez Notes Date Note Type Note Provider Name and Address Organization Details Recorded Time 04/03/2024 text/html ROS as noted in the HPI 59 yo right hand dom male with R elbow pain, has had on/off pain for some time (over a year) with no definitive injury. pain with activity, no pain at rest, radiates down forearm. Rx to this point: topical, NSAIDS, no brace, no PT. Jade Nevarez MD [address] [place] [address] [address], [place], [address], [facility] - [place] 04/03/2024 08:56:37
== END 2025-08-30 11:29 | disposition home or self-care (01) ==
LOC: HO.HOP 10:33
PROVIDERS: PCP Internal Medicine; Visit Provider Psychiatry & Neurology Psychiatry
DX: F33.41 Major depressive disorder, recurrent, in partial remission (principal); F41.1 Generalized anxiety disorder; F90.9 Attention-deficit hyperactivity disorder, unspecified type
CPT/HCPCS: 90833; 99213

== ENCOUNTER 2025-08-30 10:33 | Outpatient (REF) | payer OTHER, SELFPAY ==
[2025-09-05 16:04] LABS: Testosterone, Free 62.1 pg/mL (35.0-155.0)
== END 2025-08-30 10:34 | disposition home or self-care (01) ==
LOC: HO.LAB 10:33
PROVIDERS: PCP Internal Medicine; Visit Provider Psychiatry & Neurology Psychiatry
DX: F33.41 Major depressive disorder, recurrent, in partial remission (principal); F41.1 Generalized anxiety disorder; N40.0 Benign prostatic hyperplasia without lower urinary tract symptoms; N52.1 Erectile dysfunction due to diseases classified elsewhere; F90.9 Attention-deficit hyperactivity disorder, unspecified type
CPT/HCPCS: 36415; 84402; 84403